=== PATIENT | male | born 1950 | race Caucasian/White ===

== ENCOUNTER 2016-12-19 10:23 | Day surgery (SDC) | payer BC ==
--- NOTE | ~2016-12-19 | EGD ---
EGD REPORT [facility] [address] [id number] NAME: JUVENTINO ANDERS : [birth year] STATUS : REG [facility]#: [id number] AGE: 66 ADM/REG DATE : 12/19/16 MR#: [id number] REPORT SERV DATE: 12/19/16 DICTATED BY: MITUL PEREZ DATE: 12/19/16 REPORT STATUS : Draft TRANSCRIBED BY: [facility] DATE: 12/19/16 Endoscopy Center Patient Name: Juventino Anders Date of : 1950 Attending MD: MITUL PEREZ MD Procedure Date No Time: 12/19/2016 Procedure: Colonoscopy Indications: High risk colon cancer surveillance: Personal history of colonic polyps, Last colonoscopy: July 2010 Referring MD: ANAND MAHER MD Medicines: See the Anesthesia note for documentation of the administered medications Complications: No immediate complications. Procedure: Pre-Anesthesia Assessment: - ASA Grade Assessment: III - A patient with severe systemic disease. After I obtained informed consent, the scope was passed under direct vision. Throughout the procedure, the patient's blood pressure, pulse, and oxygen saturations were monitored continuously. The [id number] was introduced through the anus and advanced to the cecum, identified by appendiceal orifice and ileocecal valve. The colonoscopy was technically difficult and complex due to significant looping. The patient tolerated the procedure well. The quality of the bowel preparation was adequate. Findings: The perianal and digital rectal examinations were normal. Diverticula were found in the sigmoid colon. Internal hemorrhoids were found during retroflexion and were medium-sized. A flat polyp was found in the proximal ascending colon. The polyp was 15 mm in size. The polyp was removed with a piecemeal technique using a hot snare. Resection and retrieval were complete. Two hemostatic clips were successfully placed. Prevent bleeding. Impression: - Diverticulosis in the sigmoid colon. - Internal hemorrhoids. - One 15 mm polyp in the proximal ascending colon. Resected and retrieved. Clips were placed. Recommendation: - Patient has a contact number available for emergencies. The signs and symptoms of potential delayed complications were discussed with the patient. Return to EGD REPORT [address] [address] NAME: JUVENTINO ANDERS : [birth year] STATUS : REG [facility] PAT#: [id number] AGE: 66 ADM/REG DATE : 12/19/16 MR#: [id number] REPORT SERV DATE: 12/19/16 DICTATED BY: MITUL PEREZ DATE: 12/19/16 REPORT STATUS : Draft TRANSCRIBED BY: [employer] DATE: 12/19/16 normal activities tomorrow. Written discharge instructions were provided to the patient. - Regular diet. - Continue present medications. - Repeat colonoscopy depending on path for surveillance after piecemeal polypectomy. - FOR YOUR BIOPSY RESULTS: Please go to [email or web address] and register to receive your results via the portal. Your biopsy results will be posted there in about 7 to 10 days. IF you do not see result in 10 days, call office. Procedure Code(s): --- Professional --- 80376, Colonoscopy, flexible, proximal to splenic flexure; with removal of tumor(s), polyp(s), or other lesion(s) by snare technique Diagnosis Code(s): --- Professional --- K64.8, Other hemorrhoids K57.30, Diverticulosis of large intestine without perforation or abscess without bleeding D12.2, Benign neoplasm of ascending colon Z86.010, Personal history of colonic polyps CPT copyright 2013 [employer]. All rights reserved. The codes documented in this report are preliminary and upon physician coder review may be revised to meet current compliance requirements. Mitul Perez MD MITUL PEREZ MD 12/19/2016 12:38 PM This report has been signed electronically. Number of Addenda: 0 Note Initiated On: 12/19/2016 12:01 PM Scope Withdrawal Time 0 hours 14 minutes 34 seconds [id number] [place] [id number]
[~2016-12-19 10:23] MED LIST: ACTOS30 PO; ASAB PO; DCN100 PO; FISH OIL1200 MG PO; FISH-EPA1000 MG PO; GLUCOV5 PO; K-TABS10 MEQ PO; KONSYL FIBER PO; L20 PO; LORTAB 5 PO; METAMUCIL CAN7 OZ PO; NEUR600 PO; NORCO1 TA2 PO; RED YEAS1 OR; RED YEAS1 PO; ULTRAM50 PO; ZESTRIL10 MG PO
== END 2016-12-19 23:59 | disposition home or self-care (01) ==
LOC: DMU 10:23
PROVIDERS: Internal Medicine Gastroenterology
PROC: 0DBK8ZZ Excision of Ascending Colon, Via Natural or Artificial Opening Endoscopic (ICD-10-PCS; principal; 2016-12-19 12:00)
DX: Z12.11 Encounter for screening for malignant neoplasm of colon (principal); D12.2 Benign neoplasm of ascending colon; K64.8 Other hemorrhoids; K57.30 Diverticulosis of large intestine without perforation or abscess without bleeding; H91.90 Unspecified hearing loss, unspecified ear; G47.33 Obstructive sleep apnea (adult) (pediatric); I10 Essential (primary) hypertension; E11.9 Type 2 diabetes mellitus without complications; M19.90 Unspecified osteoarthritis, unspecified site; E66.01 Morbid (severe) obesity due to excess calories; Z86.010 Personal history of colon polyps; Z79.899 Other long term (current) drug therapy; Z79.82 Long term (current) use of aspirin; Z79.891 Long term (current) use of opiate analgesic
CPT/HCPCS: 82962; 88305